=== PATIENT | male | born 1950 | race African-American/Black ===

== ENCOUNTER 2016-12-09 01:10 | Emergency (ER) | payer OTHER ==
[~2016-12-09] VITALS: Ht 177.8 cm; Wt 90.0 kg
[2016-12-09 01:10] VITALS: BP 0/0
[2016-12-09] MEDS ORDERED: EPINEPHRINE 0.1MG/ML (1:10,000) 10ML SYR ONE (06:00)
== END 2016-12-09 01:18 | disposition expired ==
LOC: ER 01:15
DX: I46.9 Cardiac arrest, cause unspecified (principal); E11.9 Type 2 diabetes mellitus without complications; I10 Essential (primary) hypertension
CPT/HCPCS: 31500; 92950; 99285; J0171